=== PATIENT | male | born 1980 | race Caucasian/White ===

== ENCOUNTER 2017-06-10 17:01 | Emergency (ER) | payer SELFPAY ==
[2017-06-10] MEDS ORDERED: CLINDAMYCIN 900MG/D5W 900 MG/50 ML BAG IV ONE (18:02)
[2017-06-10] MEDS ORDERED: TETANUS & DIPHTHERIA TOX,ADULT 0.5 ML VIAL ONE (18:03)
--- NOTE | 2017-06-10 18:55 | RAD REPORT ---
EXAM DESCRIPTION: CT - Head Brain Wo Cont - 06/10/2017 6:49 pm CLINICAL HISTORY: Trauma, head injury. COMPARISON: None. TECHNIQUE: All CT scans are performed using dose optimization technique as appropriate and may inclu de automated exposure control or mA/KV adjustment according to patient size. FINDINGS: No intracranial hemorrhage, hydrocephalus or extra-axial fluid collection.No areas of brai n edema or evidence of midline shift. The paranasal sinuses and mastoids are clear. The calvarium is intact. IMPRESSION: No acute intracranial abnormality.
--- NOTE | 2017-06-10 18:57 | RAD REPORT ---
EXAM DESCRIPTION: CT - CTFB CLINICAL HISTORY: Trauma, jaw pain. COMPARISON: None. TECHNIQUE: Axial 2 mm thick images of the face were obtained with sagittal and coronal reconstructio n images. All CT scans are performed using dose optimization technique as appropriate and may include automated exposure control or mA/KV adjustment according to patient size. FINDINGS: No acute facial bone fracture is seen.The mandible is intact. The globes and orbital contents are grossly unremarkable.The paranasal sinuses and mastoids are essen tially clear. IMPRESSION: Negative for facial bone fracture.
--- NOTE | 2017-06-10 19:02 | RAD REPORT ---
EXAM DESCRIPTION: RAD - Ankle Left 3 View - 06/10/2017 6:44 pm CLINICAL HISTORY: Trauma, pain COMPARISON: None. FINDINGS: Left ankle and left foot, multiple projections are submitted. No acute fracture or dislocation appreciated.
--- NOTE | 2017-06-10 19:04 | RAD REPORT ---
EXAM DESCRIPTION: RAD - Forearm Right - 06/10/2017 6:45 pm CLINICAL HISTORY: Pain and swelling COMPARISON: None. FINDINGS: Right forearm and right hand, multiple views are submitted. Soft tissue swelling is seen in the ulnar aspect of the hand and distal forearm. No fracture, disloca tion or radiopaque foreign body.
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
--- NOTE | 2017-06-13 08:51 | RAD REPORT ---
EXAM DESCRIPTION: RAD - Hand Right 3 View - 06/10/2017 6:44 pm CLINICAL HISTORY: Pain and swelling COMPARISON: None. FINDINGS: Right forearm and right hand, multiple views are submitted. Soft tissue swelling is seen in the ulnar aspect of the hand and distal forearm. No fracture, disloca tion or radiopaque foreign body.
--- NOTE | 2017-06-13 08:52 | RAD REPORT ---
EXAM DESCRIPTION: RAD - Foot Left 3 View - 06/10/2017 6:44 pm CLINICAL HISTORY: Trauma, pain COMPARISON: None. FINDINGS: Left ankle and left foot, multiple projections are submitted. No acute fracture or dislocation appreciated. Small posterior calcaneal spur.
== END 2017-06-10 19:48 | disposition home or self-care (01) ==
LOC: ER 17:01
DX: S93.402A Sprain of unspecified ligament of left ankle, initial encounter (principal); L03.114 Cellulitis of left upper limb; L02.413 Cutaneous abscess of right upper limb; S00.90XA Unspecified superficial injury of unspecified part of head, initial encounter; W17.89XA Other fall from one level to another, initial encounter; Y93.89 Activity, other specified; Y92.009 Unspecified place in unspecified non-institutional (private) residence as the place of occurrence of the external cause; Z23 Encounter for immunization; F17.210 Nicotine dependence, cigarettes, uncomplicated
CPT/HCPCS: 70450; 70486; 76377; 90714; 96365; 99284

== ENCOUNTER 2019-01-19 07:57 | Emergency (ER) | payer SELFPAY ==
[2019-01-19] MEDS ORDERED: SMZ./TMP. 800/160 MG TABLET ONE (08:32)
[2019-01-19] MEDS ORDERED: CLINDAMYCIN 900MG/D5W 900 MG/50 ML IVPB IV ONE (08:33)
[2019-01-19 08:44] LABS: Basophils % 0.9 % (0-1.3); Hematocrit 47.7 % (39.6-49.0); Lymphocytes % 25.9 % (15.3-44.8); MPV 8.6 fL (7.6-11.3); RBC Red Blood Cell Count 5.52 M/uL (4.33-5.43)
[2019-01-19 08:49] LABS: BUN Blood Urea Nitrogen 8 mg/dL (7-18); Bicarbonate 28 mmol/L (21-32); Glucose Level 121 mg/dL (74-106); Potassium 3.5 mmol/L (3.5-5.1); Sodium Level 141 mmol/L (136-145)
--- NOTE | 2019-01-19 09:35 | RAD REPORT ---
EXAM DESCRIPTION: CTFacial Bones W Con Mpr01/19/2019 9:12 am CLINICAL HISTORY: Right facial pain and swelling COMPARISON: None. TECHNIQUE: Computed axial tomography of the face obtained with coronal and sagittal reconstruction. 50 cc Isovue-[address] scans are performed using dose optimization technique as appropriate and may include automated exposure control or mA/KV adjustment according to patient size. FINDINGS: Marked edema is present within the superficial tissues of the right lateral supraorbital/r ight temporal region. A 13 x 3 millimeter low-density area extends to the skin surface compatible wit h an abscess. The right globe is normal size and density. The right periorbital fat is clear. The adjacent right zygoma appears normal IMPRESSION: Marked cellulitis involves the right lateral supraorbital/right temporal region. 13 x 3 millimeter abscess within the subcutaneous tissues extending to the skin surface lateral to th e right of the zygoma .
[2019-01-19] MEDS ORDERED: LIDOCAINE 1% MPF 5 ML VIAL ONE (09:56)
--- NOTE | 2019-01-19 10:40 | EDPHYS ---
Physician Documentation [facility] Name: Kwesi Roe Age: 38 yrs Sex: Male : 1980 Arrival Date: 01/19/2019 Time: 07:59 Bed 6 Private MD: ED Physician Dean Ruffin HPI: 01/19 08:16 This 38 yrs old Male presents to ER via Ambulatory with complaints of Abscess.kdr 08:16 The patient presents with an abscess of the right methodist, The patient presents with kdr cellulitis of the right methodist, the patient presents with a swollen area of the right methodist. Description: The affected area is moderate sized, confluent, localized, well demarcated, erythematous, fluctuant, hot, pointed, raised, swollen, tense, warm. Onset: The symptoms/episode began/occurred gradually, 4 day(s) ago. Possible cause(s): unknown. Associated signs and symptoms: The patient has no apparent associated signs or symptoms. Modifying factors: the symptoms are alleviated by nothing, the symptoms are aggravated by pressure, squeezing the lesion and expressing the contents, touching. Severity of symptoms: At their worst the symptoms were mild, moderate, just prior to arrival, in the emergency department the symptoms are unchanged. The patient has experienced a previous episode, had staff on his chest previously. The patient has not recently seen a physician. Historical: - Allergies: 08:09 No Known Allergies; bp - Home Meds: 08:09 None [Active]; bp - PMHx: 08:09 None; bp - Immunization history:: Adult Immunizations up to date, Last tetanus immunization: < 5 years ago. - Social history:: Smoking status: Patient uses tobacco products, smokes one pack cigarettes per day. - Ebola Screening: : No symptoms or risks identified at this time. ROS: 08:16 Constitutional: Negative for fever, chills, and weight loss, ENT: Negative for injury, kdr pain, and discharge, Neck: Negative for injury, pain, and swelling, Cardiovascular: Negative for chest pain, palpitations, and edema, Respiratory: Negative for shortness of breath, cough, wheezing, and pleuritic chest pain, Abdomen/GI: Negative for abdominal pain, nausea, vomiting, diarrhea, and constipation, Back: Negative for injury and pain, Neuro: Negative for headache, weakness, numbness, tingling, and seizure activity. Psych: Negative for depression, anxiety, suicide ideation, homicidal ideation, and hallucinations, Allergy/Immunology: Negative for hives, rash, and allergies, Endocrine: Negative for neck swelling, polydipsia, polyuria, polyphagia, and marked weight changes, Hematologic/Lymphatic: Negative for swollen nodes, abnormal bleeding, and unusual bruising. 08:16 Eyes: Positive for Swelling lateral to right eye. 08:16 Skin: Positive for abscess, cellulitis, erythema, swelling, of the right methodist. Exam: 08:16 Constitutional: This is a well developed, well nourished patient who is awake, alert, kdr and in no acute distress. Head/Face: Normocephalic, atraumatic. Chest/axilla: Normal chest wall appearance and motion. Nontender with no deformity. No lesions are appreciated. Cardiovascular: Regular rate and rhythm with a normal S1 and S2. No gallops, murmurs, or rubs. Normal PMI, no JVD. No pulse deficits. 08:16 Eyes: Periorbital structures: cellulitis, erythema, that is mild, on the , on the right methodist, swelling, that is mild, on the right methodist. Vital Signs: 08:09 BP 151 / 102; Pulse 100; Resp 17; Temp 97.7; Pulse Ox 95% ; Weight 117.93 kg; Height 6 bp ft. (182.88 cm); 09:00 BP 150 / 103; Pulse 95; Resp 18; Pulse Ox 97% ; ph 10:00 BP 140 / 104; Pulse 93; Resp 16; Pulse Ox 97% ; bp 10:42 BP 149 / 104; Pulse 86; Resp 16; Temp 97.8; Pulse Ox 97% ; bp 08:09 Body Mass Index 35.26 (117.93 kg, 182.88 cm) bp Procedures: 10:50 I \T\ D: Incision and drainage was performed for an abscess of the right right methodist kdr Prepped with Betadine, Anesthetized with 2 ml's 1% Lidocaine. Incised with #11 blade. Drained small amount purulent fluid. bloody fluid. Loculations removed. Abscess cavity explored. Packed with sterile gauze, Dressing: sterile 4x4 gauze, non-Adherent dressing, the patient tolerated the procedure well. MDM: 10:39 Patient medically screened. kdr 10:50 Data reviewed: vital signs, nurses notes. Counseling: I had a detailed discussion with kdr the patient and/or guardian regarding: the historical points, exam findings, and any diagnostic results supporting the discharge/admit diagnosis, lab results, the need for outpatient follow up. 01/19 08:16 Order name: CBC with Diff; Complete Time: 09:09 kdr 01/19 08:16 Order name: Chem 7; Complete Time: 09:09 kdr 01/19 08:16 Order name: CT Facial Bones W/ Con \T\ Mpr; Complete Time: 10:06 kdr Administered Medications: 08:30 Drug: Clindamycin 900 mg Route: IVPB; Infused Over: 30 mins; Site: right antecubital; bp 10:44 Follow up: IV Status: Completed infusion; IV Intake: 50ml bp 08:30 Drug: Bactrim (160 mg-800 mg (DS) 1 tablet Route: PO; bp 09:39 Follow up: Response: No adverse reaction bp Disposition: 01/19/19 10:39 Discharged to Home. Impression: Right facial abscess and cellulitis . - Condition is Stable. - Discharge Instructions: Skin Abscess, [id number], Cellulitis, Adult, [id number]. - Prescriptions for Tylenol- Codeine #3 300-30 mg Oral Tablet - take 2 tablets by ORAL route every 6 hours As needed; 10 tablet. Clindamycin HCl 300 mg Oral Capsule - take 1 capsule by ORAL route every 6 hours for 10 days; 40 capsule. Bactrim DS 800- 160 mg Oral Tablet - take 1 tablet by ORAL route every 12 hours for 10 days; 20 tablet. - Medication Reconciliation Form, Thank You Letter, Antibiotic Education, Prescription Opioid Use form. - Follow up: Emergency Department; When: Tomorrow; Reason: Between 7:00 AM and 7: 00 PM. - Problem is new. - Symptoms have improved. Signatures: Dispatcher [employer] EDMS Dean Ruffin MD MD kdr Jose E Chicas RN RN bp Corrections: (The following items were deleted from the chart) 10:50 10:39 01/19/2019 10:39 Discharged to Home. Impression: Right facial abscess and bp cellulitis . Condition is Stable. Forms are Medication Reconciliation Form, Thank You Letter, Antibiotic Education, Prescription Opioid Use. Follow up: Emergency Department; When: Tomorrow; Reason: Between 7:00 AM and 7: 00 PM. Problem is new. Symptoms have improved. kdr
--- NOTE | 2019-01-19 10:40 | ER ---
Nurse's Notes [facility] Name: Kwesi Roe Age: 38 yrs Sex: Male : 1980 Arrival Date: 01/19/2019 Time: 07:59 Bed 6 Private MD: Diagnosis: Right facial abscess and cellulitis Presentation: 01/19 08:08 Presenting complaint: Patient states: R TEMPORAL ABSCESS. Transition of care: patient bp was not received from another setting of care. Onset of symptoms is unknown. Risk Assessment: Do you want to hurt yourself or someone else? Patient reports no desire to harm self or others. Initial Sepsis Screen: Does the patient meet any 2 criteria? No. Patient's initial sepsis screen is negative. Does the patient have a suspected source of infection? No. Patient's initial sepsis screen is negative. Care prior to arrival: None. 08:08 Method Of Arrival: Ambulatory bp 08:08 Acuity: TORSTEN 3 bp Triage Assessment: 08:09 General: Appears in no apparent distress. comfortable, Behavior is calm, cooperative, bp appropriate for age. Pain: Complains of pain in right eye and right holiness. EENT: No deficits noted. Neuro: No deficits noted. Cardiovascular: No deficits noted. Respiratory: No deficits noted. GI: No signs and/or symptoms were reported involving the gastrointestinal system. : No signs and/or symptoms were reported regarding the genitourinary system. Derm: Abscess located on right holiness. Musculoskeletal: No deficits noted. Historical: - Allergies: 08:09 No Known Allergies; bp - Home Meds: 08:09 None [Active]; bp - PMHx: 08:09 None; bp - Immunization history:: Adult Immunizations up to date, Last tetanus immunization: < 5 years ago. - Social history:: Smoking status: Patient uses tobacco products, smokes one pack cigarettes per day. - Ebola Screening: : No symptoms or risks identified at this time. Screenin:10 Abuse screen: Denies threats or abuse. Denies injuries from another. Nutritional bp screening: No deficits noted. Tuberculosis screening: No symptoms or risk factors identified. Fall Risk None identified. Assessment: 08:10 General: SEE TRIAGE NOTE. bp 09:08 Reassessment: Patient appears in no apparent distress at this time. Patient and/or ph family updated on plan of care and expected duration. Pain level reassessed. Patient is alert, oriented x 3, equal unlabored respirations, skin warm/dry/pink. Pt taken to CT via wheelchair. 09:18 Reassessment: PT RETURNED FROM CT. bp 10:23 Reassessment: MD AT B/S FOR I\T\D. bp 10:43 Reassessment: PT D/C HOME AMBULATORY WITH FRIENDS, DX WITH R FACIAL ABSCESS. bp Vital Signs: 08:09 BP 151 / 102; Pulse 100; Resp 17; Temp 97.7; Pulse Ox 95% ; Weight 117.93 kg; Height 6 bp ft. (182.88 cm); 09:00 BP 150 / 103; Pulse 95; Resp 18; Pulse Ox 97% ; ph 10:00 BP 140 / 104; Pulse 93; Resp 16; Pulse Ox 97% ; bp 10:42 BP 149 / 104; Pulse 86; Resp 16; Temp 97.8; Pulse Ox 97% ; bp 08:09 Body Mass Index 35.26 (117.93 kg, 182.88 cm) bp ED Course: 07:59 Patient arrived in ED. mr 08:04 Dean Ruffin MD is Attending Physician. kdr 08:08 Jose E Chicas, NATHALY is Primary Nurse. bp 08:08 Triage completed. bp 08:09 Arm band placed on. bp 08:10 Patient has correct armband on for positive identification. Bed in low position. Call bp light in reach. Side rails up X2. 08:19 Radiology exam delayed due to lab results not completed at this time. (BUN/Creatinine). sw 08:30 Inserted saline lock: 20 gauge in right forearm, using aseptic technique. bp 09:[address] via wheelchair. sw 09:00 CT completed. Patient tolerated procedure well. Patient moved back from CT. sw 09:13 CT Facial Bones W/ Con \T\ Mpr In Process Unspecified. EDMS 10:30 Assist provider with I \T\ D: of an abscess on right TEMPORAL Set up I\T\D tray. Performed bp by Dean Ruffin MD Wound packed. iodoform gauze, Dressing with NON-ADHERENT Patient tolerated well. 10:43 IV discontinued, intact, bleeding controlled, No redness/swelling at site. Pressure bp dressing applied. Administered Medications: 08:30 Drug: Clindamycin 900 mg Route: IVPB; Infused Over: 30 mins; Site: right antecubital; bp 10:44 Follow up: IV Status: Completed infusion; IV Intake: 50ml bp 08:30 Drug: Bactrim (160 mg-800 mg (DS) 1 tablet Route: PO; bp 09:39 Follow up: Response: No adverse reaction bp Intake: 10:44 IV: 50ml; Total: 50ml. bp Outcome: 10:39 Discharge ordered by . kdr 10:44 Discharged to home ambulatory, with friend. bp 10:44 Condition: stable 10:44 Discharge instructions given to patient, Instructed on discharge instructions, follow up and referral plans. medication usage, wound care, Demonstrated understanding of instructions, follow-up care, medications, wound care, Prescriptions given X 3. 10:50 Patient left the ED. bp Signatures: Dispatcher [employer] EDMS Dean Ruffin MD MD kdr Rivera, Magda Netta Salguero RN RN ph Lori Bradford Brian, RN RN bp Corrections: (The following items were deleted from the chart) 09:11 09:08 Reassessment: Patient appears in no apparent distress at this time. Patient ph and/or family updated on plan of care and expected duration. Pain level reassessed. Patient is alert, oriented x 3, equal unlabored respirations, skin warm/dry/pink. ph
[2019-01-19 11:08] VITALS: O2SAT 97
[2019-01-19 11:11] VITALS: BP 149/104; TEMP 97.8
== END 2019-01-19 10:50 | disposition home or self-care (01) ==
LOC: ER 07:57
PROC: 0H91XZZ Drainage of Face Skin, External Approach (ICD-10-PCS; principal; 2019-01-19)
DX: L03.211 Cellulitis of face (principal); F17.210 Nicotine dependence, cigarettes, uncomplicated
CPT/HCPCS: 36415; 70487; 76377; 80048; 85025; 96365; 96366; 99284; Q9967